=== PATIENT | male | born 1950 | race Two or more races ===

== ENCOUNTER 2019-03-05 09:53 | Inpatient (IN) | payer MEDICARE, MEDICAID ==
[~2019-03-05] VITALS: Ht 177.8 cm; Wt 86.2 kg
[2019-03-05] MEDS ORDERED: HYDROCODON-ACE1 EA15 ORAL (10:07)
[2019-03-05] MEDS ORDERED: ELIQUIS2.5 MG PO (10:07)
[2019-03-05] MEDS ORDERED: POTASSIUM CHLO20 ME2 ORAL (10:07)
--- NOTE | 2019-03-05 10:15 | NUR ---
ED Nurse Note: Pt was BIBA from home d/t vomiting and AMS. Pt's and daughter called 911 today, wanting to change code status of patient. Per son at bedside (Juanitoanil Hasasn), patient's neuro baseline is awake, alert, and oriented. Pt nonresponsive, placed on cont. groundwater monitoring technician and cont pulse ox. Vomitted x1 en route, per paramedics. Audible crackles noted.O2 15L via simple mask, saturating 100&%. Right AC 18g IV established by paramedics. Blood glucose 207 per paramedics. Per son, patient was placed on hospice since last year d/t Kidney CA. ERMD present at bedside. Blood collected ans sent down to lab.
--- NOTE | 2019-03-05 10:20 | NUR ---
ED Nurse Note: RT at bedside; pt placed on BiPAP 12/5, FiO2 40&%, and rate 14. Patient saturating 99% at this time.
--- NOTE | 2019-03-05 10:25 | NUR ---
ED Nurse Note: xray done at bedside
[2019-03-05 10:37] VITALS: BP 121/75
[2019-03-05 10:40] LABS: BASOPHILS % (AUTO) 0.7 % (0.0-2.0); EOSINOPHILS % (AUTO) 1.8 % (0.0-3.0); HEMATOCRIT 34.4 % (42.0-52.0); HEMOGLOBIN 10.6 G/DL (14.2-18.0); LYMPHOCYTES % (AUTO) 22.8 % (20.0-45.0); MEAN CORPUSCULAR VOLUME 80 FL (80-99); MONOCYTES % (AUTO) 8.7 % (1.0-10.0); NEUTROPHILS % (AUTO) 66.1 % (45.0-75.0); PLATELET COUNT 245 K/UL (150-450); RED BLOOD COUNT 4.31 M/UL (4.70-6.10); RED CELL DISTRIBUTION WIDTH 16.4 % (11.6-14.8); WHITE BLOOD COUNT 6.8 K/UL (4.8-10.8)
--- NOTE | 2019-03-05 10:45 | NUR ---
ED Nurse Note: Jorge Luu at bedside agreed to insert FC on patient. FC inserted 16Fr using aseptic technique; patient tolerated well. Urine collected and sent down to lab. Addendum: 03/05/19 at 1141 by ELISEO ED Nurse Note: Jorge Weber.
[2019-03-05 10:52] LABS: ANION GAP 9 mmol/L (5-15); BLOOD UREA NITROGEN 50 mg/dL (7-18); CALCIUM 8.9 MG/DL (8.5-10.1); CARBON DIOXIDE 25 MMOL/L (21-32); CHLORIDE 102 MMOL/L (98-107); CREATININE 2.2 MG/DL (0.55-1.30); POTASSIUM 5.2 MMOL/L (3.5-5.1); SODIUM 136 MMOL/L (136-145)
--- NOTE | 2019-03-05 10:55 | NUR ---
ED Nurse Note: Patient taken down to CT.
--- NOTE | 2019-03-05 11:00 | NUR ---
ED Nurse Note: Pt is back from CT; RT at bedside, pt placed back on BiPAP.
--- NOTE | 2019-03-05 11:13 | NUR ---
ED Nurse Note: ERMD and family at bedside.
[2019-03-05 11:19] LABS: ALANINE AMINOTRANSFERASE 18 U/L (12-78); ALBUMIN 3.2 G/DL (3.4-5.0); ALBUMIN/GLOBULIN RATIO 0.7 (1.0-2.7); ALKALINE PHOSPHATASE 72 U/L (46-116); ASPARTATE AMINO TRANSFERASE 24 U/L (15-37); BILIRUBIN,TOTAL 0.8 MG/DL (0.2-1.0); CKMB 1.5 NG/ML (0.0-3.6); CREATINE KINASE 77 U/L (26-308)
--- NOTE | 2019-03-05 11:42 | Diagnostic Imaging Report ---
Indication: Altered mental status Technique: Contiguous 5 mm thick transaxial imaging of the head obtained in a Siemens Sensation [address] scanner. Soft tissue and bone windows generated. Automatic Exposure Control was utilized. Total Dose length Product (DLP): [address] Dose Index Volume (CTDIvol): 62.7 mGy Comparison: none Findings: There is a large intraparenchymal hematoma within the right temporal lobe measuring approximately 7 x 6 x 5 cm associated with low-attenuation edema resulting in near complete effacement of the right lateral ventricle and right to left midline shift of about 1.6 cm. Moderate sulcal effacement of the right cerebrum noted. There is intraventricular extension of blood which is filled the right lateral ventricle and extended into the third and left lateral ventricle, fourth ventricle. There is dilatation of the left lateral ventricle. The basal cisterns appear partially effaced. Suprasellar cistern is partially compressed. IMPRESSION: 7 x 6 x 5 cm intraparenchymal right temporal lobe hematoma with edema, mass effect 1.6 cm right to left subfalcine herniation and intraventricular extension of blood. Partial effacement of the basal cisterns. Unilateral trapping of the left lateral ventricle and/or hydrocephalus. Critical value communication. Findings were discussed via telephone with Dr. Ma in the emergency department at 11:10 AM 03/05/2019. The CT scanner at [facility] is accredited by the [employer] and the scans are performed using dose optimization techniques as appropriate to a performed exam including Automatic Exposure control.
[2019-03-05 11:45] LABS: APPEARANCE,URINE CLEAR; BILIRUBIN, URINE NEGATIVE (NEGATIVE); GLUCOSE, URINE (UA) NEGATIVE (NEGATIVE); KETONES,URINE NEGATIVE (NEGATIVE); LEUKOCYTE ESTERASE ,URINE NEGATIVE (NEGATIVE); NITRITE,URINE NEGATIVE (NEGATIVE); PH,URINE 5 (4.5-8.0); PROTEIN,URINE 1+ (NEGATIVE); UROBILINOGEN,URINE NORMAL MG/DL (0.0-1.0)
[2019-03-05] MEDS ORDERED: levETIRAcetam 1,000mg/NS100ml 100 ML IVPB ONE (11:45)
[2019-03-05 11:46] LABS: COLOR,URINE YELLOW
--- NOTE | 2019-03-05 11:49 | Diagnostic Imaging Report ---
Indication: Dyspnea Comparison: None A single view chest radiograph was obtained. Findings: There are multiple lung nodules demonstrated bilaterally. The heart is enlarged. There is prominence of the cedrick on the right. Bones are osteopenic. IVC filter noted. IMPRESSION: Multiple pulmonary nodules likely on the basis of metastatic neoplasm. Correlate with any known history of malignancy. Right hilar prominence could be vascular but underlying mass or adenopathy not excluded. Cardiomegaly. Osteopenia IVC filter
[2019-03-05 11:51] VITALS: BP 124/73
--- NOTE | 2019-03-05 12:00 | NUR ---
ED Nurse Note: Pt on cont. BiPAP; saturating 100% at this time. Family at bedside. VS remains stable; patient afebrile. FC draining well to gravity. Will continue to monitor.
--- NOTE | 2019-03-05 12:19 | NUR ---
ED Nurse Note: Right arm and shoulder deformity noted; per son in law Patel at bedside, pt was seen at [facility] in the past and was told that patient has fracture on right arm/shoulder. No open wounds/redness noted.
[2019-03-05 13:03] VITALS: BP 131/89
--- NOTE | 2019-03-05 13:15 | NUR ---
ED Nurse Note: Dr Pitts at bedside.
--- NOTE | 2019-03-05 13:23 | NUR ---
ED Nurse Note: Report given to LOU Conklin via telephone.
--- NOTE | 2019-03-05 13:26 | Emergency Room Report ---
History of Present Illness General Chief Complaint: Dyspnea/Respdistress Source: Family Member, EMS Present Illness Allergies: Coded Allergies: No Known Allergies (Unverified , 03/05/19) Nursing Documentation-[facility] Past Medical History: No History, Except For Hx Cardiac Problems: Yes - CABG Hx Hypertension: Yes Hx Cancer: Yes - st 4, hospiece Physical Exam Vital Signs Date Time Temp Pulse Resp B/P (MAP) Pulse Ox O2 Delivery O2 Flow Rate FiO2 03/05/19 09:53 90 14 140/80 (100) 100 Ambu-Bag 03/05/19 10:32 40 03/05/19 10:37 98.9 Medical Decision Making Diagnostic Impression: Primary Impression: Intracranial bleed Additional Impressions: Metastatic cancer Renal failure ER Course This patient is critically ill. This patient required complex medical decision- making, aggressive intervention, extensive laboratory workup and monitoring. Critical care time: 40 minutes. Laboratory Tests Test 03/05/19 10:00 03/05/19 10:25 03/05/19 10:42 White Blood Count 6.8 K/UL (4.8-10.8) Red Blood Count 4.31 M/UL (4.70-6.10) L Hemoglobin 10.6 G/DL (14.2-18.0) L Hematocrit 34.4 % (42.0-52.0) L Mean Corpuscular Volume 80 FL (80-99) Mean Corpuscular Hemoglobin 24.6 PG (27.0-31.0) L Mean Corpuscular Hemoglobin Concent 30.8 G/DL (32.0-36.0) L Red Cell Distribution Width 16.4 % (11.6-14.8) H Platelet Count 245 K/UL (150-450) Mean Platelet Volume 5.0 FL (6.5-10.1) L Neutrophils (%) (Auto) 66.1 % (45.0-75.0) Lymphocytes (%) (Auto) 22.8 % (20.0-45.0) Monocytes (%) (Auto) 8.7 % (1.0-10.0) Eosinophils (%) (Auto) 1.8 % (0.0-3.0) Basophils (%) (Auto) 0.7 % (0.0-2.0) Sodium Level 136 MMOL/L (136-145) Potassium Level 5.2 MMOL/L (3.5-5.1) H Chloride Level 102 MMOL/L (98-107) Carbon Dioxide Level 25 MMOL/L (21-32) Anion Gap 9 mmol/L (5-15) Blood Urea Nitrogen 50 mg/dL (7-18) H Creatinine 2.2 MG/DL (0.55-1.30) H Estimate Glomerular Filtration Rate 29.7 mL/min (>60) Glucose Level 179 MG/DL (74-106) H Lactic Acid Level 1.90 mmol/L (0.4-2.0) Calcium Level 8.9 MG/DL (8.5-10.1) Total Bilirubin 0.8 MG/DL (0.2-1.0) Aspartate Amino Transferase (AST) 24 U/L (15-37) Alanine Aminotransferase (ALT) 18 U/L (12-78) Alkaline Phosphatase 72 U/L (46-116) Total Creatine Kinase 77 U/L (26-308) Creatine Kinase MB 1.5 NG/ML (0.0-3.6) Creatine Kinase MB Relative Index 1.9 Troponin I 0.002 ng/mL (0.000-0.056) Total Protein 7.6 G/DL (6.4-8.2) Albumin 3.2 G/DL (3.4-5.0) L Globulin 4.4 g/dL Albumin/Globulin Ratio 0.7 (1.0-2.7) L Arterial Blood pH 7.380 (7.350-7.450) Arterial Blood Partial Pressure CO2 32.6 mmHg (35.0-45.0) L Arterial Blood Partial Pressure O2 75.5 mmHg (75.0-100.0) Arterial Blood HCO3 18.9 mmol/L (22.0-26.0) L Arterial Blood Oxygen Saturation 94.6 % (95-100) L Arterial Blood Base Excess -5.4 (-2-2) L Carlo Test Positive Urine Color Yellow Urine Appearance Clear Urine pH 5 (4.5-8.0) Urine Specific Craig 1.020 (1.005-1.035) Urine Protein 1+ (NEGATIVE) H Urine Glucose (UA) Negative (NEGATIVE) Urine Ketones Negative (NEGATIVE) Urine Blood Negative (NEGATIVE) Urine Nitrite Negative (NEGATIVE) Urine Bilirubin Negative (NEGATIVE) Urine Urobilinogen Normal MG/DL (0.0-1.0) Urine Leukocyte Esterase Negative (NEGATIVE) Urine RBC 0-2 /HPF (0 - 0) H Urine WBC 0-2 /HPF (0 - 0) Urine Squamous Epithelial Cells Occasional /LPF Urine Bacteria Occasional /HPF (NONE) EKG Diagnostic Results Rate: normal Rhythm: NSR ST Segments: no acute changes Rhythm Strip Diag. Results EP Interpretation: yes Rate: 80's Rhythm: NSR, no PVC's, no ectopy Chest X-Ray Diagnostic Results Chest X-Ray Diagnostic Results : Chest X-Ray Ordered: Yes # of Views/Limited/Complete: 1 View Indication: Shortness of Breath EP Interpretation: Yes Interpretation: other - Diffuse nodules c/w metastatic CA, Pulmonary infiltrates Last Vital Signs Date Time Temp Pulse Resp B/P (MAP) Pulse Ox O2 Delivery O2 Flow Rate FiO2 03/05/19 13:03 98.0 92 20 131/89 100 Bi-pap 40 Referrals: [facility],REFERRING (PCP) Radha Ma DO Mar 05, 2019 13:26
--- NOTE | 2019-03-05 13:40 | History & Physical ---
History and Physical History & Physicial dict [facility] metastatic renal cancer plan comfort care DNI/DNR family at bedside Leo Pitts MD Mar 05, 2019 13:40
--- NOTE | 2019-03-05 13:45 | NUR ---
ED Nurse Note: Dr Pitts at bedside; ordered to admit patient to [facility] instead for comfort measures. Family aware.
--- NOTE | 2019-03-05 14:14 | NUR ---
TRANSFER TO FLOOR: Patient transferred to SDU 241-2 as ordered, per Dr Pitts. Bedside report given to LOU Shane. Transferred via [facility] shel[facility] protocol accompanied by RT and poured concrete wall technician. Family aware of transfer.
--- NOTE | 2019-03-05 14:17 | NUR ---
NURSE NOTES: Patient received lying in bed, unresponsive, no spontaneous eye opening noted, flexes to pain. Patient on simple mask 5 Lpm,saturating 95 %, slightly labored breathing, bilateral crackles noted upon auscultation, oral suctioning provided, HOB elevated for aspiration precaution. Patient with Vasquez catheter for comfort care, clear yellow urine noted. Skin is intact. IV lines to left and right hand, saline lock, asymptomatic. Patient is sinus rhythm on the monitor. Family members remain at waiting room while patient is being admitted to floor. Patient is DNR/DNI status. Will call primary MD for orders.
[2019-03-05] MEDS ORDERED: LORazepam Inj 2mg/ml 1ml IV PRN (15:15)
--- NOTE | 2019-03-05 15:16 | NUR ---
NURSE NOTES: Contacted Dr. Pitts and received admission orders for patient. Family members of patient remain at bedside.
[2019-03-05] MEDS: D5NS 1,000 ML IV SCH (15:34)
[2019-03-05 16:00] VITALS: BP 119/58
--- NOTE | 2019-03-05 17:01 | NUR ---
NURSE NOTES: Labored breathing noted and wheezing. Oral suctioning provided to patient, HOB kept elevated. Called RT for assistance with deep suctioning, moderate to large amount of thin clear/white mucus noted. Will give PRN morphine, family members at bedside made aware before morphine administration; Juanito Breaux Jr. was also called by a family member to make him aware of med administration.
[2019-03-05] MEDS: Morphine Sulfate 4mg/ml Inj (IV USE ONLY) IVP PRN (17:07)
--- NOTE | 2019-03-05 18:00 | History and Physical Report ---
DATE OF ADMISSION: 03/05/2019 CHIEF COMPLAINT: Unresponsive. HISTORY OF PRESENT ILLNESS: The patient is a 68-year-old man with a history of metastatic renal cancer. He had a nephrectomy in the past and is on Eliquis for a DVT. He developed severe headache and called the paramedics at 5 a.m. They stated that he should get some pain medication and did not transport the patient. Around 9 a.m. he became poorly responsive and vomiting. He was brought to the emergency department and was poorly responsive and now unresponsive. He was evaluated and found to have a large right temporal intraparenchymal cerebral hemorrhage with mass effect and early herniation. There is intraventricular extension of blood. The patient was given antiseizure medication prophylactically in the emergency department and placed on BiPAP. PAST MEDICAL HISTORY: Metastatic renal cancer, nephrectomy, deep vein thrombosis, hypertension, diabetes, resolved as he has become more ill. ALLERGIES: None. MEDICATIONS: Felch, potassium, Eliquis. REVIEW OF SYSTEMS: Cannot be obtained. PHYSICAL EXAMINATION: GENERAL: The patient is unresponsive to deep pain. He is somewhat overweight. He is on BiPAP. VITAL SIGNS: Blood pressure is normal. Saturations normal. Respirations are 21 and labored. Heart rate is 92. Temperature is normal. SKIN: Warm and dry. HEENT: Head is normocephalic. NECK: No jugular venous distention. CHEST: Clear. CARDIAC: Rhythm is regular. ABDOMEN: Soft and nontender with some accessory muscle use. EXTREMITIES: No clubbing, cyanosis, or edema. The right shoulder is swollen (metastatic disease per family). I moved his right shoulder, which the family states caused him to scream in the past but he did not respond at all. NEUROLOGIC: Unresponsive to deep pain. LABORATORY AND DIAGNOSTIC DATA: Chest x-ray shows innumerable metastatic nodules. His CT scan as reported above. Laboratory tests show 1 normal white count, hemoglobin is 10.6, and platelets are normal. A blood gas shows pH is 7.3, pCO2 33, pO2 75. Chemistry shows BUN 50, creatinine 2.2, blood sugar 179, albumin 3.2. Lactic acid is normal. Urinalysis is negative. IMPRESSION: 1. Massive intraparenchymal cerebral hemorrhage with herniation. 2. Widely metastatic renal carcinoma. 3. History of diabetes. 4. History of hypertension 5. Anticoagulation for deep vein thrombosis. PLAN: I advised the family at the bedside that the patient cannot survive this illness.. After day opined, they did not want to consider neurosurgery or transfer. The patient will be taken off BiPAP and admitted to the medical floor with comfort measures only. He will be DNR. Leo Pitts M.D. DR: Shailesh JOB#: [id number] CC:
--- NOTE | 2019-03-05 19:20 | NUR ---
NURSE NOTES: Received report from LOU Shane, pt. in bed- with family at bedside- pt. is non-verbal, no signs of distress noted, pt. is on simple mask 5L sating at 93%. Vasquez intact and draining to gravity, bed in lowest position and call light within easy reach, bed alarm on, side rails up x's3 and safety brakes engaged, LFA 20G IV intact and patent running D5NS at 75cc/hr, pt. has RT. AC 18G- iv intact and patent, comfort measures provided, safety measures continued, will continue with plan of care.
--- NOTE | 2019-03-05 19:27 | NUR ---
HAND-OFF: Report given to LOU Jefferson.
--- NOTE | 2019-03-05 20:53 | NUR ---
NURSE NOTES: notified DR. Blanton of pt. having temp of 102.1- axillary- cooling measures applied and fan in room at bedside. Per DR. Blanton to order Acetaminophen 650mg rectal Q6hrs prn fever- orders carried out.
[2019-03-05] MEDS: Acetaminophen 650 MG SUPP RECTAL PRN (20:59)
--- NOTE | 2019-03-05 21:29 | NUR ---
NURSE NOTES: Temp trending down now 100.4 orally- will continue with cooling measures - fan and ice. Addendum: 03/05/19 at 2215 by CAPRI BENITES RN RN Family aware.
[2019-03-05 21:57] VITALS: BP 108/65
[2019-03-06] VITALS: BP 100/57
[2019-03-06] MEDS: D5NS 1,000 ML IV SCH ×2 (02:06→17:02)
[2019-03-06 04:00] VITALS: BP 109/50
--- NOTE | 2019-03-06 07:28 | NUR ---
HAND-OFF: Report given to Rosalva RN, pt. remains stable and no signs of distress noted.
--- NOTE | 2019-03-06 07:29 | NUR ---
NURSE NOTES: RECEIVED PATIENT Izabella BENITES RN. PATIENT IS LYING IN BED, UNRESPONSIVE. FAMILY MEMBER SEEN AT THE BEDSIDE. HOOKED TO WAFER SLICER. ON 5L, SIMPLE MASK. SATING AT 100%. NPO OF THE MOMENT. FISHER CONNECTED TO BAG, PATENT AND DRAINING DARK MARCOS URINE. NOTED SWELLING OF BLE. IV'S ON R AC G20, SL AND R FA G20 RUNNING IVF D5 NS AT 75ML/HR. CALL LIGHT WITHIN REACH. BED AT LOWEST POSITION. SIDE RAILS UP. WILL CONTINUE TO MONITOR.
[2019-03-06 08:00] VITALS: BP 133/86
--- NOTE | 2019-03-06 08:30 | NUR ---
NURSE NOTES: SEEN AND EXAMINED BY DR BRODERICK. ORDERED TO MONITOR HR ONLY. SON REFUSED MORPHINE IV OF THE MOMENT. WILL CONTINUE TO MONITOR.
--- NOTE | 2019-03-06 08:35 | Pulmonology Progress Note ---
Assessment/Plan Assessment/Plan [facility] metastatic renal cancer plan comfort care no further vitals prn morphine DNI/DNR family at bedside Subjective ROS Limited/Unobtainable: Yes Allergies: Coded Allergies: No Known Allergies (Unverified , 03/05/19) Subjective somewhat agonal on FM no resopnse Objective Last 24 Hour Vital Signs Date Time Temp Pulse Resp B/P (MAP) Pulse Ox O2 Delivery O2 Flow Rate FiO2 03/06/19 04:00 98.4 105 23 109/50 (69) 94 03/06/19 04:00 5.0 03/06/19 04:00 103 03/06/19 04:00 Simple Mask 5.0 03/06/19 00:00 5.0 03/06/19 00:00 99.9 102 22 100/57 (71) 98 03/06/19 00:00 101 03/06/19 00:00 Simple Mask 5.0 03/05/19 21:57 102.1 115 22 108/65 (79) 93 03/05/19 21:29 100.4 03/05/19 21:00 Simple Mask 5.0 03/05/19 20:00 5.0 03/05/19 20:00 Simple Mask 5.0 03/05/19 19:24 114 03/05/19 16:00 98.6 112 26 119/58 (78) 03/05/19 16:00 103 03/05/19 15:17 Simple Mask 5.0 03/05/19 15:17 5.0 03/05/19 14:55 98.8 78 20 122/71 98 Simple Mask 10.0 03/05/19 13:03 98.0 92 20 131/89 100 Bi-pap 40 03/05/19 13:00 79 22 100 Facial 40 03/05/19 11:51 98.0 80 21 124/73 100 Bi-pap 40 03/05/19 10:37 98.9 78 21 121/75 100 Bi-pap 40 03/05/19 10:37 78 21 Bi-pap 40 03/05/19 10:32 78 21 100 Full Face 40 03/05/19 09:53 90 14 140/80 (100) 100 Ambu-Bag Intake and Output 03/05/19 03/06/19 19:00 07:00 Intake Total 362.5 ml 893 ml Output Total 450 ml 230 ml Balance -87.5 ml 663 ml Intake Oral 0 ml IV Total 362.5 ml 893 ml Output Urine Total 450 ml 230 ml General Appearance: cachetic Respiratory/Chest: rhonchi Cardiovascular: regular rhythm Neurologic/Psychiatric: disoriented, unresponsiveness Laboratory Tests 03/05/19 10:00: White Blood Count 6.8, Red Blood Count 4.31L, Hemoglobin 10.6L, Hematocrit 34.4L , Mean Corpuscular Volume 80, Mean Corpuscular Hemoglobin 24.6L, Mean Corpuscular Hemoglobin Concent 30.8L, Red Cell Distribution Width 16.4H, Platelet Count 245, Mean Platelet Volume 5.0L, Neutrophils (%) (Auto) 66.1, Lymphocytes (%) (Auto) 22.8, Monocytes (%) (Auto) 8.7, Eosinophils (%) (Auto) 1.8, Basophils (%) (Auto) 0.7, Sodium Level 136, Potassium Level 5.2H, Chloride Level 102, Carbon Dioxide Level 25, Anion Gap 9, Blood Urea Nitrogen 50H, Creatinine 2.2H, Estimat Glomerular Filtration Rate 29.7, Glucose Level 179H, Lactic Acid Level 1.90, Calcium Level 8.9, Total Bilirubin 0.8, Aspartate Amino Transf (AST/SGOT) 24, Alanine Aminotransferase (ALT/SGPT) 18, Alkaline Phosphatase 72, Total Creatine Kinase 77, Creatine Kinase MB 1.5, Creatine Kinase MB Relative Index 1.9, Troponin I 0.002, Total Protein 7.6, Albumin 3.2L , Globulin 4.4, Albumin/Globulin Ratio 0.7L 03/05/19 10:25: Arterial Blood pH 7.380, Arterial Blood Partial Pressure CO2 32.6L, Arterial Blood Partial Pressure O2 75.5, Arterial Blood HCO3 18.9L, Arterial Blood Oxygen Saturation 94.6L, Arterial Blood Base Excess -5.4L, Carlo Test Positive 03/05/19 10:42: Urine Color Yellow, Urine Appearance Clear, Urine pH 5, Urine Specific [place]wood 1.020, Urine Protein 1+H, Urine Glucose (UA) Negative, Urine Ketones Negative, Urine Blood Negative, Urine Nitrite Negative, Urine Bilirubin Negative, Urine Urobilinogen Normal, Urine Leukocyte Esterase Negative, Urine RBC 0-2H, Urine WBC 0-2, Urine Squamous Epithelial Cells Occasional, Urine Bacteria Occasional Current Medications Medications (Trade) Dose Ordered Sig/Gonzales Route PRN Reason Start Time Stop Time Status Last Admin Dose Admin Acetaminophen (Tylenol) 650 mg Q6H PRN RECTAL for fever (T>100.5F) 03/05/19 21:00 04/04/19 20:59 03/05/19 20:59 Dextrose/Sodium Chloride 1,000 ml @ 75 mls/hr [id number] IV 03/05/19 15:15 04/04/19 15:14 03/06/19 02:06 Lorazepam (Ativan 2mg/ml 1ml) 1 mg Q4H PRN IV Restlessness 03/05/19 15:15 03/12/19 15:14 Morphine Sulfate (Morphine Sulfate) 4 mg Q2H PRN IVP For Pain 03/05/19 13:30 03/12/19 13:29 03/05/19 17:07 Mare Blanton DO Mar 06, 2019 08:35
[2019-03-06] MEDS: Morphine Sulfate 4mg/ml Inj (IV USE ONLY) IVP PRN ×4 (10:49→21:14)
--- NOTE | 2019-03-06 15:22 | Cardiology Report ---
APPROVED REPORT EKG Measurement Heart [id number] NM [id number] Normal sinus rhythm Normal ECG
--- NOTE | 2019-03-06 17:09 | NUR ---
CASE MANAGEMENT: INITIAL REVIEW 68 YO M BIBA FROM HOME CC: DYSPNEA PMHx: HTN. STAGE 4 CA. CABG. SI:INTRACRANIAL BLEED. T 98.9 HR 90 RR 14 B/P 140/80 SATS 100% ON AMBU BAG FIO2 40 K 5.2 BUN 50 CR 2.2 GLU 179 ABGs PCO2 32.6 HCO3 18.9 O2 SAT 94.6 BE -5.4 IS: KEPPRA IV X1 CT HEAD IMPRESSION: 7 x 6 x 5 cm intraparenchymal right temporal lobe hematoma with edema, mass effect 1.6 cm right to left subfalcine herniation and intraventricular extension of blood. Partial effacement of the basal cisterns. Unilateral trapping of the left lateral ventricle and/or hydrocephalus. PATIENT ADMITTED TO SDU 03/05/2019 @ 1147 DCP: PATIENT TO BE DISCHARGED TO HOME ONCE MEDICALLY CLEARED. PLAN OF CARE: comfort care no further vitals prn morphine DNI/DNR
--- NOTE | 2019-03-06 19:20 | NUR ---
HAND-OFF: Report given to Izabella Zuluaga RN
--- NOTE | 2019-03-06 19:22 | NUR ---
NURSE NOTES: Received report from Rosalva RN, pt. in bed- with family at bedside- pt. is non-verbal, no signs of cardiac distress noted, pt. is on simple mask 5L sating at 97%. Vasquez intact and draining to gravity- dark lawanda urine, bed in lowest position and call light within easy reach, bed alarm on, side rails up x's3 and safety brakes engaged, LFA 20G IV intact and patent running D5NS at 75cc/hr, pt. has RT. AC 18G- iv intact and patent, comfort measures provided, oral care and suctioning done, safety measures continued, will continue with plan of care.
[2019-03-06 20:00] VITALS: BP 103/58
--- NOTE | 2019-03-06 21:05 | NUR ---
NURSE NOTES: pts son requesting Morphine for comfort measures - advised son- b/p sys at moment is 110 and may drop-son okay and okay to administer medicine. Will continue to monitor and reassess patient.
[2019-03-07] VITALS: BP 89/61
[2019-03-07 04:00] VITALS: BP 91/66
[2019-03-07] MEDS: D5NS 1,000 ML IV SCH ×2 (05:38→19:31)
--- NOTE | 2019-03-07 05:44 | NUR ---
NURSE NOTES: Discussed Morphine administration with family member Abhinav bermudez pt. appears to be comfortable and not to administer medication until he discusses with family members. Will continue to monitor pt. and with plan of care.
--- NOTE | 2019-03-07 06:05 | NUR ---
NURSE NOTES: spoke with family member Jarrell okay to administer Morphine for comfort measures- would like to be notified before administering medication.
[2019-03-07] MEDS: Morphine Sulfate 4mg/ml Inj (IV USE ONLY) IVP PRN ×4 (06:10→23:31)
--- NOTE | 2019-03-07 07:05 | NUR ---
NURSE NOTES: received patient report from kailyn castaneda. patient is on bed asleep, noted to be obtunded. dnr/dni. comfort measures only. will follow plan of care.
--- NOTE | 2019-03-07 07:17 | NUR ---
HAND-OFF: Report given to Marta Fitch, pt. remains stable and no signs of distress noted- nurse aware to f/u with family member before administering morphine.
[2019-03-07 08:00] VITALS: BP 102/58
[2019-03-07] MEDS ORDERED: D5NS 1000ml IV ONE (16:13)
--- NOTE | 2019-03-07 19:12 | NUR ---
HAND-OFF: Report given to harriet castaneda.
--- NOTE | 2019-03-07 19:20 | NUR ---
NURSE NOTES: per family member Jarrell - okay to give Morphine Q5 hours- but he will notify if he wants to give sooner or not. Dr. Blanton also aware.
--- NOTE | 2019-03-07 19:25 | NUR ---
NURSE NOTES: Received report from Fitch RN, pt. in bed- with multiple family members at bedside- pt. is non-verbal, no signs of cardiac distress noted, pt. is on simple mask 5L sating at 98%. Vasquez intact and draining to gravity- dark lawanda urine, bed in lowest position and call light within easy reach, bed alarm on, side rails up x's3 and safety brakes engaged, LFA 20G IV intact and patent running D5NS at 75cc/hr, pt. has RT. AC 18G- iv intact and patent, comfort measures provided, oral care and suctioning done, safety measures continued, will continue with plan of care.
--- NOTE | 2019-03-07 19:52 | Pulmonology Progress Note ---
Assessment/Plan Assessment/Plan ICH metastatic renal cancer plan comfort care no further vitals prn morphine dc tele and IVF DNI/DNR family at bedside Subjective ROS Limited/Unobtainable: Yes Allergies: Coded Allergies: No Known Allergies (Unverified , 03/05/19) Subjective somewhat agonal on FM no response Objective Last 24 Hour Vital Signs Date Time Temp Pulse Resp B/P (MAP) Pulse Ox O2 Delivery O2 Flow Rate FiO2 03/07/19 16:00 5.0 03/07/19 15:48 107 03/07/19 13:04 98 03/07/19 12:00 5.0 03/07/19 12:00 100 03/07/19 09:22 97 03/07/19 09:00 Simple Mask 5.0 03/07/19 08:00 5.0 03/07/19 08:00 97.9 99 20 102/58 (73) 97 03/07/19 06:40 97.6 03/07/19 04:00 Simple Mask 5.0 03/07/19 04:00 5.0 03/07/19 04:00 97.6 101 21 91/66 (74) 95 03/07/19 03:44 99 03/07/19 00:00 97.9 114 22 89/61 (70) 95 03/07/19 00:00 5.0 03/07/19 00:00 Simple Mask 5.0 03/06/19 23:58 114 03/06/19 21:00 Simple Mask 5.0 03/06/19 20:00 Simple Mask 5.0 03/06/19 20:00 5.0 03/06/19 20:00 98.2 109 22 103/58 (73) 95 Intake and Output 03/06/19 03/07/19 18:59 06:59 Intake Total 820 ml 850 ml Output Total 30 ml 40 ml Balance 790 ml 810 ml IV Total 820 ml 850 ml Output Urine Total 30 ml 40 ml General Appearance: cachetic Respiratory/Chest: rhonchi Cardiovascular: bradycardia Abdomen: soft, non tender Neurologic/Psychiatric: unresponsiveness Microbiology Date/Time Source Procedure Growth Status 03/05/19 10:15 Blood Blood Culture - Preliminary NO GROWTH AFTER 24 HOURS Resulted 03/05/19 10:00 Blood Blood Culture - Preliminary NO GROWTH AFTER 24 HOURS Resulted Current Medications Medications (Trade) Dose Ordered Sig/Gonzales Route PRN Reason Start Time Stop Time Status Last Admin Dose Admin Acetaminophen (Tylenol) 650 mg Q6H PRN RECTAL for fever (T>100.5F) 03/05/19 21:00 04/04/19 20:59 03/05/19 20:59 Dextrose/Sodium Chloride 1,000 ml @ 75 mls/hr [id number] IV 03/05/19 15:15 04/04/19 15:14 03/07/19 19:31 Lorazepam (Ativan 2mg/ml 1ml) 1 mg Q4H PRN IV Restlessness 03/05/19 15:15 03/12/19 15:14 Morphine Sulfate (Morphine Sulfate) 4 mg Q2H PRN IVP For Pain 03/05/19 13:30 03/12/19 13:29 03/07/19 18:00 Mare Blanton DO Mar 07, 2019 19:52
--- NOTE | 2019-03-07 19:54 | NUR ---
NURSE NOTES: per DR. Blanton to d/c pt. of cardiac technician and D/C IV fluids- but pt. to remain on SDU floor- orders carried out. Addendum: 03/07/19 at 2116 by CAPRI BENITES RN RN family aware.
--- NOTE | 2019-03-07 22:44 | NUR ---
NURSE NOTES: discussed with family member Jarrell if he would like me to administer morphine for comfort measures- per Jarrell pt. appears to be comfortable and will let me know if breathing gets harder for patient. Will continue to monitor pt. and with plan of care.
--- NOTE | 2019-03-07 23:29 | NUR ---
NURSE NOTES: Spoke with family member Jarrell - regarding Morphine administration for comfort measures- family agrees to administer medication. Will continue to monitor pt. and with plan of care.
--- NOTE | 2019-03-08 02:16 | NUR ---
NURSE NOTES: Spoke with family member Jarrell - regarding Morphine administration for comfort measures- family agrees to administer medication. Pt. appears to be using more of his accessory muscle- Will continue to monitor pt. and with plan of care.
[2019-03-08] MEDS: Morphine Sulfate 4mg/ml Inj (IV USE ONLY) IVP PRN ×2 (02:18→08:16)
--- NOTE | 2019-03-08 03:00 | NUR ---
NURSE NOTES: pt. appears to be resting comfortably- using less accessory muscles- will continue to monitor pt.and with comfort measures. Family continues to be at bedside.
--- NOTE | 2019-03-08 06:59 | NUR ---
HAND-OFF: Report given to LOU Peck, Pt. remains stable and no signs of distress noted.
--- NOTE | 2019-03-08 08:03 | NUR ---
NURSE NOTES: Patient report received from LOU Jefferson. Patient received in declining stage with monk foamy oral and nose secretion.Suction as tolerated and mouth care done.Noted with elevated temperature 101.8F and Tylenol, 650mg suppository given along with cooling measure.Patient also noted to use accessories muscles for breathing, educate family who has been resistant to Morphine and one dose of 4 mg given.Blood pressure 95/56 HR 113 saturation at 92% on simple mask at 5LPM.Abdomen soft and non distended.Patient turned and repositioned for comfort.Family at bedside and rooming in. Made aware of the patient declining stage and verbalized understanding.Patient kept clean dry and comfortable. Will continue routine round around the clock.Respiratory rate at 32 breath per minute at this time.
[2019-03-08] MEDS: Acetaminophen 650 MG SUPP RECTAL PRN (08:25)
--- NOTE | 2019-03-08 08:53 | Pulmonology Progress Note ---
Assessment/Plan Assessment/Plan ICH metastatic renal cancer plan comfort care no further vitals prn morphine DNI/DNR discussed with family at bedside Subjective ROS Limited/Unobtainable: Yes Allergies: Coded Allergies: No Known Allergies (Unverified , 03/05/19) Objective Last 24 Hour Vital Signs Date Time Temp Pulse Resp B/P (MAP) Pulse Ox O2 Delivery O2 Flow Rate FiO2 03/08/19 04:00 Simple Mask 5.0 03/08/19 04:00 5.0 03/08/19 02:48 97.9 03/08/19 00:00 5.0 03/08/19 00:00 Simple Mask 5.0 03/07/19 21:00 Simple Mask 5.0 03/07/19 20:00 Simple Mask 5.0 03/07/19 20:00 92 03/07/19 20:00 5.0 03/07/19 19:51 109 03/07/19 16:00 5.0 03/07/19 15:48 107 03/07/19 13:04 98 03/07/19 12:00 5.0 03/07/19 12:00 100 03/07/19 09:22 97 03/07/19 09:00 Simple Mask 5.0 Intake and Output 03/07/19 03/08/19 19:00 07:00 Intake Total 900 ml Output Total 370 ml 250 ml Balance 530 ml -250 ml IV Total 900 ml Output Urine Total 370 ml 250 ml General Appearance: no acute distress HEENT: normocephalic Respiratory/Chest: accessory muscle use, rhonchi Cardiovascular: normal rate Extremities: no edema Microbiology Date/Time Source Procedure Growth Status 03/05/19 10:15 Blood Blood Culture - Preliminary NO GROWTH AFTER 48 HOURS Resulted 03/05/19 10:00 Blood Blood Culture - Preliminary NO GROWTH AFTER 48 HOURS Resulted Current Medications Medications (Trade) Dose Ordered Sig/Gonzales Route PRN Reason Start Time Stop Time Status Last Admin Dose Admin Acetaminophen (Tylenol) 650 mg Q6H PRN RECTAL for fever (T>100.5F) 03/05/19 21:00 04/04/19 20:59 03/08/19 08:25 Lorazepam (Ativan 2mg/ml 1ml) 1 mg Q4H PRN IV Restlessness 03/05/19 15:15 03/12/19 15:14 Morphine Sulfate (Morphine Sulfate) 4 mg Q2H PRN IVP For Pain 03/05/19 13:30 03/12/19 13:29 03/08/19 08:16 Leo Pitts MD Mar 08, 2019 08:53
--- NOTE | 2019-03-08 09:32 | NUR ---
NURSE NOTES: Patient noted with bradypnea at 10 breath per minute, family kept educated and update.Will continue close monitoring. Remains in the same declining stage.Call light within easy reach. Position adjusted in bed for comfort.
--- NOTE | 2019-03-08 10:11 | NUR ---
NURSE NOTES: Patient seen by Dr Pitts and update given.Patient remains in the same declining stage, no apparent acute distress, respiratory rate between 8-10 with intermittent episode of apnea.All family at beside , will continue rounding. Addendum: 03/08/19 at 1137 by Liv Noel RN Patient on comfort measure DNR/DNI, next of skin made aware of declining stage
--- NOTE | 2019-03-08 10:20 | NUR ---
PRONOUNCEMENT: No Code. Called to pronounce patient. Absence of spontaneous respirations, no cardiac or breath sounds on auscultation. Pupils fixed and dilated. No carotid pulse or chest movement. Patient at 1020. DR Pitts notified PER primary nurse Liv.Family was at bedside at time of .
--- NOTE | 2019-03-08 10:20 | NUR ---
NURSE NOTES: Patient was pronounced at 1020 by 2 RN.Family at bedside
--- NOTE | 2019-03-08 10:25 | NUR ---
NURSE NOTES: [facility] called and case number [id number].Spoke to Cydney Quintero at 1025 Addendum: 03/08/19 at 1123 by Liv Noel RN Primary physician Dr Pitts made aware
--- NOTE | 2019-03-08 10:59 | NUR ---
NURSE NOTES: Shipyard Supervisor called and not a case as stated by Kandi Baker at [phone]
--- NOTE | 2019-03-08 12:53 | NUR ---
NURSE NOTES: Post mortem care done, awaiting mortuary for remains to be picked up. Release of remains signed by next of kin to mortuary of choice.
--- NOTE | 2019-03-08 13:25 | NUR ---
NURSE NOTES: Remains picked up at 1320 by mortuary, next of kin at the side with other family members.
--- NOTE | 2019-03-09 10:08 | NUR ---
*-* INSURANCE *-* ALL CLINICALS AND REVIEWS HAVE BEEN FAXED TO: [facility] P: [phone] F: [phone]
--- NOTE | 2019-03-10 08:48 | Discharge Summary ---
Discharge Summary Discharge Summary _ SUMMARY DATE OF ADMISSION: 03/05/2019 DATE OF EXPIRATION :03/08/2019 REASON FOR ADMISSION: 68 years old male with history of metastatic renal cancer, DVT, on anticoagulation/Eliquis, developed severe headache. Subsequently paramedics were called at 5 AM. Pleating Machine Operator told him to get some pain medication and did not transfer the patient to the hospital. Around 9 AM patient became poorly responsive and started vomiting. He was brought to the emergency department for further evaluation and found to be nonresponsive. CT of the head revealed 7 x 6 x 5 cm intraparenchymal right temporal lobe hematoma with edema, mass effect. 1.6 cm right to left subfalcine herniation and intraventricular extension of blood. Partial effacement of the basal cisterns. Unilateral trapping of the left lateral ventricle and/or hydrocephalus. Patient received prophylactic antiseizure medication and was placed on the BiPAP. Laboratory work-up revealed potassium 5.2, BUN 50, creatinine 2.2. Glucose 179. Lactic acid 1.9. Troponin was negative. EKG revealed sinus rhythm , no acute ischemic changes. No leukocytosis, hemoglobin 10.6, hematocrit 34.4, platelet count 245. Urinalysis revealed no evidence of urinary tract infection. Chest x-ray demonstrated multiple pulmonary nodules, likely on the basis of metastatic neoplasm. IVC filter. Cardiomegaly. Osteopenia. Patient admitted to direct observational unit for further management. HOSPITAL COURSE: Patient admitted . Supportive care provided. Patient initially was on a BiPAP. Family was advised that patient would not be able to survive this illness . Family declined to consider neurosurgery or transfer to higher level of care. Family decided on comfort measures only and DNR/DNI status. Patient subsequently was taken from the BiPAP . Comfort measures provided. Pain management was addressed as needed. IV fluids discontinued. Supplemental oxygen provided to keep patient comfortable. Anxiolytic were on board as needed. Patient's condition rapidly deteriorated. He was pronounced at at 10:20am at 03/08/19 . Cause of : cardiopulmonary arrest due to massive intracerebral hemorrhage FINAL DIAGNOSES: Massive intraparenchymal cerebral hemorrhage with herniation. Metastatic renal carcinoma. History of diabetes. History of hypertension Anticoagulation for deep vein thrombosis. I have been assigned to dictate discharge summary for this account. I was not involved in the patient's management. Kay Packer NP Mar 10, 2019 08:48
--- NOTE | 2019-03-10 16:45 | NUR ---
*-* INSURANCE *-* DISCHARGE SUMMARY HAS BEEN FAXED TO: [facility] P: [phone] F: [phone]
== END 2019-03-08 13:10 | disposition expired | DRG 64 ==
LOC: EDBD 09:53 → EMR 10:35 → ICU 11:47 → EDBEDREQ 12:45 → 2W 14:14
PROC: 5A09357 Assistance with Respiratory Ventilation, Less than 24 Consecutive Hours, Continuous Positive Airway Pressure (ICD-10-PCS; principal; 2019-03-05)
DX: I61.8 Other nontraumatic intracerebral hemorrhage (principal); G93.5 Compression of brain; C64.9 Malignant neoplasm of unspecified kidney, except renal pelvis; C79.9 Secondary malignant neoplasm of unspecified site; Z51.5 Encounter for palliative care; Z66 Do not resuscitate; Z86.718 Personal history of other venous thrombosis and embolism; E11.9 Type 2 diabetes mellitus without complications; I10 Essential (primary) hypertension; Z90.5 Acquired absence of kidney; Z79.01 Long term (current) use of anticoagulants
CPT/HCPCS: 36415; 36600; 70450; 71045; 80053; 81003; 82550; 82553; 82803; 83605; 84484; 85025; 87040; 93005; 96374; 99285